=== PATIENT | male | born 1955 | race Caucasian/White ===

== ENCOUNTER 2017-06-21 13:57 | Outpatient (CLI) | payer OTHER ==
--- NOTE | 2017-06-21 14:20 | RAD ---
3 VIEWS LEFT SHOULDER: Date: 06/21/17 COMPARISON: None. HISTORY: Fall on left shoulder with pain. FINDINGS: Three views of the left shoulder show no evidence of acute fracture or dislocation. No soft tissue sw elling is seen. No significant degenerative changes are present. IMPRESSION: No significant left shoulder abnormality. POS: [facility]
== END 2017-06-21 13:58 | disposition home or self-care (01) ==
LOC: MADRAD 13:57
PROVIDERS: ATTEND Nurse Practitioner Family
DX: Z91.81 History of falling (principal); M25.512 Pain in left shoulder

== ENCOUNTER 2017-12-05 12:20 | Emergency (ER) | payer OTHER ==
[2017-12-05] MEDS ORDERED: Lidocaine 1% w/Epinephrine 1:100K 30 ML VIAL ONE (12:56)
== END 2017-12-05 13:13 | disposition left against medical advice (07) ==
LOC: MADERS 12:20
DX: M79.671 Pain in right foot (principal); E11.9 Type 2 diabetes mellitus without complications; E78.5 Hyperlipidemia, unspecified; F32.9 Major depressive disorder, single episode, unspecified
CPT/HCPCS: 94760; J2001

== ENCOUNTER 2018-06-22 13:09 | Outpatient (CLI) | payer OTHER ==
--- NOTE | 2018-06-22 13:26 | RAD ---
PA AND LATERAL OF THE CHEST: INDICATION: Dyspnea and COPD. COMPARISON: None. FINDINGS: No definite confluent airspace opacity is evident. There are areas of subsegmental volume loss withi n the left lower lobe. No definite pleural effusion is noted. The costophrenic angles are excluded. No pneumothorax is evident. IMPRESSION: 1. Limited exam. No definite acute airspace consolidation, pleural effusion, or pneumothorax is william dent. 2. Subsegmental volume loss affecting the left lower lobe. POS: [facility]
== END 2018-06-22 13:10 | disposition home or self-care (01) ==
LOC: MADRAD 13:09
PROVIDERS: ATTEND Nurse Practitioner Family
DX: J44.9 Chronic obstructive pulmonary disease, unspecified (principal); R06.00 Dyspnea, unspecified; J98.4 Other disorders of lung
CPT/HCPCS: 71046

== ENCOUNTER 2018-08-03 14:21 | Emergency (ER) | payer OTHER ==
[2018-08-03] MEDS ORDERED: Cephalexin 500 MG CAP ONE (14:55)
[2018-08-03] MEDS ORDERED: Sulfameth/Trimethoprim DS 800-160mg TAB ONE (14:55)
== END 2018-08-03 15:17 | disposition home or self-care (01) ==
LOC: MADERS 14:21
DX: L03.116 Cellulitis of left lower limb (principal); E11.9 Type 2 diabetes mellitus without complications; E78.5 Hyperlipidemia, unspecified; F32.9 Major depressive disorder, single episode, unspecified; Z79.82 Long term (current) use of aspirin; Z79.899 Other long term (current) drug therapy
CPT/HCPCS: 99283

== ENCOUNTER 2020-04-02 14:45 | Outpatient (CLI) | payer MEDICARE ==
[2020-04-02 15:10] LABS: #Basophils 0.1 thou/uL (0.0-0.2); #Eosinphils 0.5 thou/uL (0.0-0.7); #Lymphocytes 1.4 thou/uL (1.20-3.40); #Monocytes 0.5 thou/uL (0.11-0.59); #Neutrophils 7.2 thou/uL (1.40-6.50); %Eosinophils 5.2 % (0.0-10.0); %Lymphocytes 14.2 % (21.0-51.0); %Neutrophils 74.5 % (42.0-75.0); Hemoglobin 12.8 g/dL (14.0-18.0); Mean Corpuscular HGB CONC 30.4 g/dL (32.0-36.0); Mean Corpuscular Hemoglobin 27.1 pg (27.0-31.0); Mean Corpuscular Volume 89.4 fL (78.0-98.0); Mean Platelet Volume 5.4 fL (7.4-10.4); Platelet Count 290 thou/uL (130-400); RBC Distribution Width 13.4 % (11.5-14.5); Red Blood Cell (RBC) Count 4.73 mill/uL (4.70-6.10); White Blood Cell (WBC) Count 9.6 thou/uL (4.8-10.8)
[2020-04-02 15:20] LABS: Vancomycin, Trough 14.3 ug/mL
[2020-04-02 15:23] LABS: Anion Gap 17 mmol/L (10-20); BUN (Urea Nitrogen) 15 mg/dL (8.4-25.7); Calc. Creatinine Clearance 0 mL/min (70-130); Calcium 8.8 mg/dL (7.8-10.44); Carbon Dioxide 29 mmol/L (23-31); Chloride 97 mmol/L (98-107); Glucose 157 mg/dL (80-115); Sodium 138 mmol/L (136-145)
== END 2020-04-02 14:46 | disposition home or self-care (01) ==
LOC: MADLAB 14:45
PROVIDERS: ATTEND Internal Medicine
DX: I87.332 Chronic venous hypertension (idiopathic) with ulcer and inflammation of left lower extremity (principal); L97.509 Non-pressure chronic ulcer of other part of unspecified foot with unspecified severity
CPT/HCPCS: 80048; 80202; 85025

== ENCOUNTER 2020-04-06 16:38 | Outpatient (CLI) | payer MEDICARE ==
[2020-04-06 18:07] LABS: Vancomycin, Trough 18.8 ug/mL
[2020-04-06 18:11] LABS: Anion Gap 17 mmol/L (10-20); BUN (Urea Nitrogen) 32 mg/dL (8.4-25.7); Calc. Creatinine Clearance 0 mL/min (70-130); Calcium 9.5 mg/dL (7.8-10.44); Carbon Dioxide 30 mmol/L (23-31); Chloride 97 mmol/L (98-107); Glucose 139 mg/dL (80-115); Potassium 5.5 mmol/L (3.5-5.1); Sodium 138 mmol/L (136-145)
[2020-04-06 18:39] LABS: #Basophils 0.2 thou/uL (0.0-0.2); #Eosinphils 0.8 thou/uL (0.0-0.7); #Lymphocytes 1.9 thou/uL (1.20-3.40); #Monocytes 0.5 thou/uL (0.11-0.59); #Neutrophils 5.1 thou/uL (1.40-6.50); %Basophils 2.2 % (0.0-1.0); %Eosinophils 9.1 % (0.0-10.0); %Lymphocytes 22.4 % (21.0-51.0); %Monocytes 6.1 % (0.0-10.0); %Neutrophils 60.3 % (42.0-75.0); Hemoglobin 13.4 g/dL (14.0-18.0); Mean Corpuscular HGB CONC 29.6 g/dL (32.0-36.0); Mean Corpuscular Volume 91.2 fL (78.0-98.0); Mean Platelet Volume 5.6 fL (7.4-10.4); Platelet Count 369 thou/uL (130-400); RBC Distribution Width 13.4 % (11.5-14.5); Red Blood Cell (RBC) Count 4.95 mill/uL (4.70-6.10); White Blood Cell (WBC) Count 8.5 thou/uL (4.8-10.8)
== END 2020-04-06 16:39 | disposition home or self-care (01) ==
LOC: MADLAB 16:38
PROVIDERS: ATTEND Internal Medicine
DX: I87.332 Chronic venous hypertension (idiopathic) with ulcer and inflammation of left lower extremity (principal); L97.929 Non-pressure chronic ulcer of unspecified part of left lower leg with unspecified severity; L97.509 Non-pressure chronic ulcer of other part of unspecified foot with unspecified severity
CPT/HCPCS: 80048; 80202; 85025

== ENCOUNTER 2020-04-20 11:58 | Outpatient (CLI) | payer MEDICARE ==
[2020-04-20 12:55] LABS: #Basophils 0.1 thou/uL (0.0-0.2); #Lymphocytes 1.3 thou/uL (1.20-3.40); #Monocytes 0.6 thou/uL (0.11-0.59); %Basophils 1.3 % (0.0-1.0); %Eosinophils 11.5 % (0.0-10.0); %Lymphocytes 14.5 % (21.0-51.0); %Monocytes 6.3 % (0.0-10.0); %Neutrophils 66.4 % (42.0-75.0); Mean Corpuscular HGB CONC 30.1 g/dL (32.0-36.0); Mean Corpuscular Hemoglobin 26.7 pg (27.0-31.0); Mean Corpuscular Volume 88.7 fL (78.0-98.0); Mean Platelet Volume 6.3 fL (7.4-10.4); Platelet Count 280 thou/uL (130-400); RBC Distribution Width 13.3 % (11.5-14.5); Red Blood Cell (RBC) Count 4.88 mill/uL (4.70-6.10); White Blood Cell (WBC) Count 9.1 thou/uL (4.8-10.8)
[2020-04-20 13:06] LABS: Vancomycin, Trough 18.5 ug/mL
[2020-04-20 13:07] LABS: Anion Gap 12 mmol/L (10-20); BUN (Urea Nitrogen) 30 mg/dL (8.4-25.7); Calc. Creatinine Clearance 0 mL/min (70-130); Calcium 9.4 mg/dL (7.8-10.44); Carbon Dioxide 33 mmol/L (23-31); Chloride 98 mmol/L (98-107); Glucose 177 mg/dL (80-115); Potassium 4.5 mmol/L (3.5-5.1); Sodium 138 mmol/L (136-145)
== END 2020-04-20 11:59 | disposition home or self-care (01) ==
LOC: MADLABSP 11:58
PROVIDERS: ATTEND Internal Medicine
DX: Z47.81 Encounter for orthopedic aftercare following surgical amputation (principal); I87.332 Chronic venous hypertension (idiopathic) with ulcer and inflammation of left lower extremity; L97.821 Non-pressure chronic ulcer of other part of left lower leg limited to breakdown of skin; L03.116 Cellulitis of left lower limb
CPT/HCPCS: 80048; 80202; 85025

== ENCOUNTER 2020-05-04 13:31 | Outpatient (CLI) | payer MEDICARE ==
[2020-05-04 16:02] LABS: #Basophils 0.1 thou/uL (0.0-0.2); #Eosinphils 0.5 thou/uL (0.0-0.7); #Lymphocytes 1.3 thou/uL (1.20-3.40); #Monocytes 0.7 thou/uL (0.11-0.59); #Neutrophils 6.5 thou/uL (1.40-6.50); %Lymphocytes 13.9 % (21.0-51.0); %Monocytes 7.5 % (0.0-10.0); %Neutrophils 71.5 % (42.0-75.0); Hemoglobin 12.4 g/dL (14.0-18.0); Mean Corpuscular HGB CONC 30.4 g/dL (32.0-36.0); Mean Corpuscular Volume 88.9 fL (78.0-98.0); Mean Platelet Volume 5.8 fL (7.4-10.4); Platelet Count 230 thou/uL (130-400); RBC Distribution Width 13.4 % (11.5-14.5); Red Blood Cell (RBC) Count 4.58 mill/uL (4.70-6.10); White Blood Cell (WBC) Count 9.1 thou/uL (4.8-10.8)
[2020-05-04 16:05] LABS: Vancomycin, Trough 21.4 ug/mL
[2020-05-04 16:08] LABS: Anion Gap 18 mmol/L (10-20); BUN (Urea Nitrogen) 26 mg/dL (8.4-25.7); CRP (Inflammatory) 3.32 mg/dL (= or < 0.5); Calc. Creatinine Clearance 0 mL/min (70-130); Calcium 8.9 mg/dL (7.8-10.44); Carbon Dioxide 28 mmol/L (23-31); Chloride 99 mmol/L (98-107); Glucose 119 mg/dL (80-115); Potassium 4.6 mmol/L (3.5-5.1); Sodium 140 mmol/L (136-145)
== END 2020-05-04 13:32 | disposition home or self-care (01) ==
LOC: MADLAB 13:31
PROVIDERS: ATTEND Nurse Practitioner Family
DX: I87.332 Chronic venous hypertension (idiopathic) with ulcer and inflammation of left lower extremity (principal); L97.502 Non-pressure chronic ulcer of other part of unspecified foot with fat layer exposed
CPT/HCPCS: 80048; 80202; 85025; 85652; 86140

== ENCOUNTER 2020-05-11 14:47 | Outpatient (CLI) | payer MEDICARE ==
[2020-05-11 15:13] LABS: #Basophils 0.1 thou/uL (0.0-0.2); #Eosinphils 0.6 thou/uL (0.0-0.7); #Lymphocytes 1.4 thou/uL (1.20-3.40); #Monocytes 0.8 thou/uL (0.11-0.59); #Neutrophils 5.9 thou/uL (1.40-6.50); %Basophils 1.4 % (0.0-1.0); %Eosinophils 7.1 % (0.0-10.0); %Lymphocytes 15.7 % (21.0-51.0); %Monocytes 8.8 % (0.0-10.0); Hemoglobin 12.1 g/dL (14.0-18.0); Mean Corpuscular HGB CONC 29.6 g/dL (32.0-36.0); Mean Corpuscular Hemoglobin 26.5 pg (27.0-31.0); Mean Corpuscular Volume 89.4 fL (78.0-98.0); Mean Platelet Volume 6.1 fL (7.4-10.4); Platelet Count 328 thou/uL (130-400); RBC Distribution Width 13.3 % (11.5-14.5); Red Blood Cell (RBC) Count 4.57 mill/uL (4.70-6.10); White Blood Cell (WBC) Count 8.8 thou/uL (4.8-10.8)
[2020-05-11 15:22] LABS: Vancomycin, Trough 18.9 ug/mL
[2020-05-11 15:24] LABS: Anion Gap 17 mmol/L (10-20); BUN (Urea Nitrogen) 37 mg/dL (8.4-25.7); CRP (Inflammatory) 4.42 mg/dL (= or < 0.5); Calc. Creatinine Clearance 0 mL/min (70-130); Calcium 9.4 mg/dL (7.8-10.44); Carbon Dioxide 30 mmol/L (23-31); Chloride 99 mmol/L (98-107); Glucose 88 mg/dL (80-115); Potassium 4.6 mmol/L (3.5-5.1); Sodium 141 mmol/L (136-145)
== END 2020-05-11 14:48 | disposition home or self-care (01) ==
LOC: MADLABSP 14:47
PROVIDERS: ATTEND Internal Medicine
DX: Z47.81 Encounter for orthopedic aftercare following surgical amputation (principal); I87.332 Chronic venous hypertension (idiopathic) with ulcer and inflammation of left lower extremity; L97.521 Non-pressure chronic ulcer of other part of left foot limited to breakdown of skin; L02.416 Cutaneous abscess of left lower limb; L03.116 Cellulitis of left lower limb
CPT/HCPCS: 80048; 80202; 85025; 85652; 86140

== ENCOUNTER 2020-05-27 16:43 | Outpatient (CLI) | payer MEDICARE ==
[2020-05-27 22:03] LABS: #Basophils 0.1 thou/uL (0.0-0.2); #Eosinphils 0.6 thou/uL (0.0-0.7); #Lymphocytes 1.5 thou/uL (1.20-3.40); #Monocytes 0.7 thou/uL (0.11-0.59); #Neutrophils 7.9 thou/uL (1.40-6.50); %Basophils 0.7 % (0.0-1.0); %Eosinophils 5.9 % (0.0-10.0); %Lymphocytes 13.9 % (21.0-51.0); %Monocytes 6.1 % (0.0-10.0); %Neutrophils 73.4 % (42.0-75.0); Hemoglobin 12.7 g/dL (14.0-18.0); Mean Corpuscular HGB CONC 30.1 g/dL (32.0-36.0); Mean Corpuscular Hemoglobin 27.7 pg (27.0-31.0); Mean Corpuscular Volume 92.2 fL (78.0-98.0); Mean Platelet Volume 7.3 fL (7.4-10.4); Platelet Count 351 thou/uL (130-400); RBC Distribution Width 13.7 % (11.5-14.5); Red Blood Cell (RBC) Count 4.58 mill/uL (4.70-6.10); White Blood Cell (WBC) Count 10.7 thou/uL (4.8-10.8)
[2020-05-27 22:10] LABS: Anion Gap 14 mmol/L (10-20); BUN (Urea Nitrogen) 27 mg/dL (8.4-25.7); CRP (Inflammatory) 2.33 mg/dL (= or < 0.5); Calc. Creatinine Clearance 0 mL/min (70-130); Calcium 9.1 mg/dL (7.8-10.44); Carbon Dioxide 33 mmol/L (23-31); Chloride 98 mmol/L (98-107); Glucose 196 mg/dL (80-115); Sodium 140 mmol/L (136-145)
== END 2020-05-27 16:44 | disposition home or self-care (01) ==
LOC: MADLAB 16:43
PROVIDERS: ATTEND Internal Medicine
DX: I87.332 Chronic venous hypertension (idiopathic) with ulcer and inflammation of left lower extremity (principal); L97.502 Non-pressure chronic ulcer of other part of unspecified foot with fat layer exposed
CPT/HCPCS: 80048; 85025; 85652; 86140

== ENCOUNTER 2020-06-05 09:32 | Outpatient (CLI) | payer MEDICARE ==
[2020-06-05 09:42] LABS: #Basophils 0.1 thou/uL (0.0-0.2); #Eosinphils 0.7 thou/uL (0.0-0.7); #Lymphocytes 1.3 thou/uL (1.20-3.40); #Monocytes 0.5 thou/uL (0.11-0.59); #Neutrophils 6.4 thou/uL (1.40-6.50); %Basophils 1.2 % (0.0-1.0); %Eosinophils 7.4 % (0.0-10.0); %Lymphocytes 14.4 % (21.0-51.0); %Monocytes 5.5 % (0.0-10.0); %Neutrophils 71.4 % (42.0-75.0); Mean Corpuscular HGB CONC 29.6 g/dL (32.0-36.0); Mean Corpuscular Hemoglobin 26.2 pg (27.0-31.0); Mean Corpuscular Volume 88.4 fL (78.0-98.0); Mean Platelet Volume 6.7 fL (7.4-10.4); Platelet Count 277 thou/uL (130-400); RBC Distribution Width 13.9 % (11.5-14.5); Red Blood Cell (RBC) Count 4.95 mill/uL (4.70-6.10)
[2020-06-05 09:52] LABS: Anion Gap 11 mmol/L (10-20); BUN (Urea Nitrogen) 31 mg/dL (8.4-25.7); CRP (Inflammatory) 1.48 mg/dL (= or < 0.5); Calc. Creatinine Clearance 0 mL/min (70-130); Calcium 9.5 mg/dL (7.8-10.44); Carbon Dioxide 36 mmol/L (23-31); Chloride 96 mmol/L (98-107); Glucose 173 mg/dL (80-115); Sodium 138 mmol/L (136-145)
== END 2020-06-05 09:33 | disposition home or self-care (01) ==
LOC: MADLAB 09:32
PROVIDERS: ATTEND Internal Medicine
DX: I87.332 Chronic venous hypertension (idiopathic) with ulcer and inflammation of left lower extremity (principal); L97.521 Non-pressure chronic ulcer of other part of left foot limited to breakdown of skin; L97.821 Non-pressure chronic ulcer of other part of left lower leg limited to breakdown of skin; L03.116 Cellulitis of left lower limb; Z79.2 Long term (current) use of antibiotics
CPT/HCPCS: 80048; 85025; 85652; 86140